=== PATIENT | female | born 1960 | race Caucasian/White ===

== ENCOUNTER 2022-07-21 09:47 | Outpatient (CLI) | payer MEDICARE, SELFPAY ==
--- NOTE | 2022-07-21 09:56 | MM_ITS ---
WS: [id number] Bilateral screening 3D tomosynthesis digital mammogram, 07/21/2022 Clinical Data: SCREENING Comparison: 12/18/2019 Findings: The breast parenchymal pattern shows some glandular tissue. No spiculated masses or clustered calcifi cations are seen. There are no secondary signs of carcinoma. There is a biopsy clip in the midportion of the right breast. MM/[place] [id number] Impression: 1. Negative bilateral mammogram unchanged. 2. Recommend annual screening mammograms. BIRADS: 1-Negative FOLLOW UP: 1 Year Follow-up The CAD schedule checker was used.
== END 2022-07-21 09:48 | disposition home or self-care (01) ==
PROVIDERS: PCP Nurse Practitioner Family; Visit Provider Nurse Practitioner Family
DX: Z12.31 Encounter for screening mammogram for malignant neoplasm of breast (principal)
CPT/HCPCS: 77063; 77067

== ENCOUNTER → 2022-07-26 13:19 | Outpatient (BNVA) | payer MEDICARE, SELFPAY | PROVIDERS: PCP Nurse Practitioner Family; Visit Provider Family Medicine | DX: E87.6 Hypokalemia (principal); I10 Essential (primary) hypertension; E78.5 Hyperlipidemia, unspecified; E03.9 Hypothyroidism, unspecified; R53.83 Other fatigue; G47.00 Insomnia, unspecified; F32.A Depression, unspecified; Z79.899 Other long term (current) drug therapy | CPT/HCPCS: 80053; 80061; 82306; 82607; 84439; 84443; 84481; 85025 ==

== ENCOUNTER → 2022-08-03 13:43 | Outpatient (BNVA) | payer MEDICARE, SELFPAY | PROVIDERS: PCP Nurse Practitioner Family; Visit Provider Family Medicine | DX: N39.0 Urinary tract infection, site not specified (principal); W57.XXXA Bitten or stung by nonvenomous insect and other nonvenomous arthropods, initial encounter; G47.00 Insomnia, unspecified | CPT/HCPCS: 81003; 86618; 86666; 86757; 87077; 87086; 87184 ==

== ENCOUNTER → 2022-10-10 13:33 | Outpatient (BNVA) | payer MEDICARE, SELFPAY | PROVIDERS: PCP Family Medicine; Visit Provider Family Medicine | DX: R35.0 Frequency of micturition (principal); N39.0 Urinary tract infection, site not specified | CPT/HCPCS: 81003; 87077; 87086; 87184 ==

== ENCOUNTER → 2022-10-25 11:02 | Outpatient (BNVA) | payer MEDICARE, SELFPAY | PROVIDERS: PCP Family Medicine; Visit Provider Nurse Practitioner Family | DX: J06.9 Acute upper respiratory infection, unspecified (principal); N18.9 Chronic kidney disease, unspecified; E78.5 Hyperlipidemia, unspecified; E03.9 Hypothyroidism, unspecified; I10 Essential (primary) hypertension; R05.9 Cough, unspecified; J40 Bronchitis, not specified as acute or chronic; N39.0 Urinary tract infection, site not specified | CPT/HCPCS: 80053; 80061 ==

== ENCOUNTER 2022-11-17 13:44 | Emergency (ER) | payer MEDICARE, SELFPAY ==
[2022-11-17 13:47] VITALS: BP 154/100; PULSE 92; RESP 18; TEMP 36.4; O2SAT 91; BMI 25.8
--- NOTE | 2022-11-17 13:54 | W.ED.NAVMDI ---
HPI - Nausea/Vomiting/Diarrhea General: Chief complaint: Nausea/Vomiting/Diarrhea Stated complaint: N/V Time Seen by Provider: 11/17/22 13:47 Source: patient and EMS Mode of arrival: EMS Limitations: no limitations History of Present Illness: 62-year-old female states over the last 3 days she been having nausea vomiting diarrhea states she had multiple episodes of vomiting and feeling dehydrated she denies any fever she denies any abdominal pain. She denies any improving or worsening factors. Associated nausea: Yes Associated symtoms: Reports nausea; Denies chest pain, dysuria or headache(s) Review of Systems Const: Denies: fever(s), chills, body aches or change in appetite Eyes: Denies: blurry vision or eye discomfort ENMT: Denies: throat pain or dental pain Card: Denies: chest pain Resp: Denies: dyspnea GI: Reports: nausea, vomiting and diarrhea : Denies: dysuria Musc: Denies: neck pain or back pain Skin/Breast: Denies: rash Neuro: Denies: headache(s) Psych: Denies: depression [place]/Lymph: Denies: easy bruising All/Imm: Denies: urticaria PFSH ED PFSH: Medical History (Updated 11/17/22 @ 15:39 by Avery Ortiz MD) CKD (chronic kidney disease) Social History Smoking and tobacco status: former smoker Physical Exam Const: COMMON NORMALS: no acute distress, patient oriented x3 and healthy appearing HENMT: COMMON NORMALS: normocephalic and atraumatic HEAD & SCALP: normocephalic and atraumatic Eye: COMMON NORMALS: Equal, round and reactive pupils present and EOMs intact bilaterally PUPIL: Yes Equal, round and reactive pupils present Neck/C-Spine: COMMON NORMALS: full ROM and supple Chest: COMMONS NORMALS: normal inspection of the chest and normal palpation of entire chest wall Resp: COMMON NORMALS: normal respiratory effort, No retractions, No use of accessory muscles and clear to auscultation bilaterally AUSCULTATION: clear to auscultation bilaterally Cardio: COMMON NORMALS: regular rate, regular rhythm and No murmurs present (Cardio) RATE: regular rate RHYTHM: regular rhythm GI: COMMON NORMALS: Normal to inspection, nondistended, normoactive bowel sounds present, Soft to palpation, non-tender and no masses PALPATION: Yes Soft to palpation Extremity: COMMON NORMALS: normal to inspection and full ROM Neuro: COMMON NORMALS: patient oriented x3, moves all extremities and no focal motor deficits Psych: COMMON NORMALS: mental status grossly normal, Normal thought process present and cooperative THOUGHT PROCESS: Normal thought process present Skin: COMMON NORMALS: no rashes or lesions noted and no wounds GENERAL SKIN EXAM: no rashes or lesions noted Course Vital Signs: Vital signs: Vital Signs Temperature 97.6 F 11/17/22 13:47 Pulse Rate 65 11/17/22 15:40 Respiratory Rate 16 11/17/22 15:13 Blood Pressure 138/94 11/17/22 15:40 Pulse Oximetry 96 11/17/22 15:40 Oxygen Delivery Me thod 11/17/22 13:47 MDM - Nausea/Vomiting/Diarrhea Medical Decision Making Patient presents here with nausea vomiting she feels much improved after Phenergan she is been able to tolerate p.o. here she had slight hypokalemia we will start her on potassium at home prescribe her Phenergan she is stable for discharge she is to follow-up with PCP and return if worsening. Lab Data 11/17/22 12:59 11/17/22 12:59 Laboratory Results WBC 5.1 10^3/uL (4.0-10.0) 11/17/22 12:59 RBC 4.45 10^6/uL (4.1-5.3) 11/17/22 12:59 Hgb 13.6 g/dL (11.5-15.3) 11/17/22 12:59 Hct 39.6 % (37.0-47.0) 11/17/22 12:59 MCV 89.0 fl (81-99) 11/17/22 12:59 MCH 30.6 pg (28.0-34.0) 11/17/22 12:59 MCHC 34.3 g/dL (30.0-36.0) 11/17/22 12:59 RDW 12.9 % (12.1-15.1) 11/17/22 12:59 Plt Count 199 10^3/cmm (130-400) 11/17/22 12:59 MPV 12.4 fL (7.4-10.4) H 11/17/22 12:59 Neut % (Auto) 52.2 % 11/17/22 12:59 Lymph % (Auto) 27.4 % 11/17/22 12:59 [place] % (Auto) 13.8 % 11/17/22 12:59 Eos % (Auto) 5.6 % 11/17/22 12:59 Baso % (Auto) 0.6 % 11/17/22 12:59 Neut # (Auto) 2.68 10^3/uL (1.8-7.7) 11/17/22 12:59 Lymph # (Auto) 1.4 10^3/uL (0.8-4.8) 11/17/22 12:59 [place] # (Auto) 0.7 10^3/uL (0.2-0.9) 11/17/22 12:59 Eos # (Auto) 0.3 10^3/uL (0.0-0.8) 11/17/22 12:59 Baso # (Auto) 0.0 10^3/uL (0.0-0.1) 11/17/22 12:59 Nucleated RBC % (auto) 0 % 11/17/22 12:59 Nucleated RBCs # 0.0 /100WBC 11/17/22 12:59 Sodium 138 mmol/L (136-145) 11/17/22 12:59 Potassium 2.8 mmol/L (3.5-5.1) L* 11/17/22 12:59 Chloride 99 mmol/L (98-107) 11/17/22 12:59 Carbon Dioxide 26 mmol/L (22-29) 11/17/22 12:59 Anion Gap 15.8 (5-19) 11/17/22 12:59 BUN 9 mg/dL (8-23) 11/17/22 12:59 Creatinine 1.0 mg/dL (0.5-0.9) H 11/17/22 12:59 GFR Calculation 56.4 mL/min (90-130) L 11/17/22 12:59 Glucose 183 mg/dL (65-115) H 11/17/22 12:59 Calculated Osmolality 289 mOsm/kg (285-295) 11/17/22 12:59 Calcium 9.3 mg/dL (8.5-10.5) 11/17/22 12:59 Total Bilirubin 0.3 mg/dL (0.15-1.2) 11/17/22 12:59 AST 12 U/L (0-32) 11/17/22 12:59 ALT 11 U/L (0-33) 11/17/22 12:59 Alkaline Phosphatase 90 U/L (35-105) 11/17/22 12:59 Total Protein 6.8 g/dL (6.6-8.7) 11/17/22 12:59 Albumin 3.8 g/dL (3.5-5.2) 11/17/22 12:59 Globulin 3.0 g/dL (1.3-4.6) 11/17/22 12:59 Lipase 36 U/L (13-60) 11/17/22 12:59 Discharge Plan Discharge Patient Disposition: Home Clinical Impression: Vomiting, Diarrhea, Hypokalemia Condition: Stable Prescriptions: New promethazine 25 mg tablet 12.5 mg PO Q6H PRN (Reason: nausea and vomiting) Qty: 14 0RF potassium chloride 40 mEq/15 mL liquid 40 meq PO BID 5 Days Qty: 150 0RF No Action aripiprazole [Abilify] 10 mg tablet 10 mg PO DAILY Qty: 90 3RF atorvastatin [Lipitor] 40 mg tablet 40 mg PO DAILY Qty: 90 3RF phenazopyridine [Pyridium] 100 mg tablet 100 mg PO TID PRN (Reason: pain) Qty: 20 0RF amlodipine-benazepril 5-10 mg capsule 1 cap PO DAILY Qty: 90 2RF promethazine-DM 6.25-15 mg/5 mL syrup 5 - 10 ml PO Q6H PRN (Reason: cough) Qty: 200 1RF albuterol sulfate [Ventolin HFA] 90 mcg/actuation HFA aerosol inhaler 2 puff inhalation 6XD PRN (Reason: shortness of breath or wheezing) Qty: 8.5 11RF thyroid (pork) [[place] Thyroid] 60 mg tablet 60 mg PO DAILY Qty: 90 3RF potassium chloride 20 mEq tablet extended release 20 meq PO DAILY Qty: 90 3RF baclofen 20 mg tablet 20 mg PO BID Qty: 180 3RF chlorthalidone 25 mg tablet 25 mg PO DAILY Qty: 90 3RF escitalopram oxalate [Lexapro] 10 mg tablet 10 mg PO DAILY Qty: 90 3RF estradiol 1 mg tablet 1 mg PO DAILY Qty: 90 3RF pantoprazole [Protonix] 40 mg tablet,delayed release (DR/EC) 40 mg PO QAM Qty: 90 3RF doxepin 10 mg capsule See Rx Instructions .ROUTE .COMPLEX Qty: 270 3RF Dose Instruction: TAKE 2 CAPSULES BY MOUTH AT BEDTIME Rx Instructions: TAKE 3 CAPSULES BY MOUTH AT BEDTIME clonidine HCl 0.1 mg tablet 0.1 mg PO BEDTIME Rx Instructions: TAKE 1 TABLET EVERY DAY clonazepam 1 mg tablet 1 mg PO BID PRN (Reason: Anxiety) tramadol 50 mg tablet 50 mg PO BID PRN (Reason: Pain) Symbicort 160-4.5 mcg/actuation HFA aerosol inhaler 2 puff inhalation Q12H PRN (Reason: Shortness Of Breath) Discharge Orders: Discharge ED (Routine); Ordered 11/17/22 Ordered By: Avery Ortiz Referrals: Carmen Adames MD [Primary Care Provider] - 1-3 days Discharge Diet: Advance as tolerated Discharge Activity: Resume usual activity Patient Instructions: Acute Nausea and Vomiting (ED) Coding Level of Care Code ED Occupational Work Experience Teacher for Chg Fwd Exam Comprehensive
[2022-11-17 14:10] LABS: Basophils % 0.6 %; Eosinophils # 0.3 10^3/uL (0.0-0.8); Eosinophils % 5.6 %; Hematocrit 39.6 % (37.0-47.0); Hemoglobin 13.6 g/dL (11.5-15.3); Lymphocytes # 1.4 10^3/uL (0.8-4.8); Lymphocytes % 27.4 %; Mean Corpuscular HGB Conc 34.3 g/dL (30.0-36.0); Mean Corpuscular Hemoglobin 30.6 pg (28.0-34.0); Mean Platelet Volume 12.4 fL (7.4-10.4); Monocytes # 0.7 10^3/uL (0.2-0.9); Monocytes % 13.8 %; Neutrophils # 2.68 10^3/uL (1.8-7.7); Neutrophils % 52.2 %; Nucleated Red Blood Cells % 0 %; Platelet Count 199 10^3/cmm (130-400); Red Blood Count 4.45 10^6/uL (4.1-5.3); Red Cell Distribution Width 12.9 % (12.1-15.1); White Blood Count 5.1 10^3/uL (4.0-10.0)
[2022-11-17] MEDS: sodium chloride 0.9% 1,000 ML 999 ML IV (14:14)
[2022-11-17 14:27] LABS: Alanine Aminotransferase 11 U/L (0-33); Albumin Level 3.8 g/dL (3.5-5.2); Alkaline Phosphatase 90 U/L (35-105); Anion Gap 15.8 (5-19); Aspartate Amino Transferase 12 U/L (0-32); Blood Urea Nitrogen 9 mg/dL (8-23); Calcium 9.3 mg/dL (8.5-10.5); Carbon Dioxide 26 mmol/L (22-29); Chloride 99 mmol/L (98-107); Glomerular Filtration Rate 56.4 mL/min (90-130); Glucose 183 mg/dL (65-115); Lipase 36 U/L (13-60); Osmolality Calculated 289 mOsm/kg (285-295); Sodium 138 mmol/L (136-145); Total Bilirubin 0.3 mg/dL (0.15-1.2); Total Protein 6.8 g/dL (6.6-8.7)
[2022-11-17] MEDS: promethazine 25 mg/mL SDV 1 mL 12.5 MG IM (14:51)
[2022-11-17 14:56] LABS: Potassium 2.8 mmol/L (3.5-5.1)
[2022-11-17] MEDS: potassium chloride ER 20 mEq Tablet 40 MEQ PO (15:09)
[2022-11-17 15:13] VITALS: BP 154/92; PULSE 78; RESP 16; O2SAT 97
[2022-11-17 15:40] VITALS: BP 138/94; PULSE 65; O2SAT 96
[2022-11-17] MEDS: diphenoxylate/atropine Tablet 2 TAB PO (16:07)
[2022-11-17 16:47] LABS: Add Urine Microscopic? NO; Charge for UA Resulting for Rev
[2022-11-17 16:56] VITALS: BP 161/95; PULSE 75; RESP 16; O2SAT 96
[2022-11-17 17:02] LABS: Bilirubin Urine Neg (Negative); Blood Urine Neg (Negative); Glucose Urine UA Norm (Normal); Ketones Urine 1+ (Negative); Leukocyte Esterase Urine Negative (Negative); Nitrate Urine Negative (Negative); Protein Urine Neg (Negative); Urine Appearance Clear (CLEAR); Urine Color Yellow (Yellow); Urobilinogen Urine Neg (Negative); pH Urine 7 (5-7)
== END 2022-11-17 16:50 | disposition home or self-care (01) ==
PROVIDERS: Emergency Provider Emergency Medicine; PCP Family Medicine
DX: R11.11 Vomiting without nausea (principal); R19.7 Diarrhea, unspecified; E87.6 Hypokalemia; N18.9 Chronic kidney disease, unspecified; Z87.891 Personal history of nicotine dependence
CPT/HCPCS: 80053; 81003; 83690; 85025; 96372; 99284; J2550; J7030

== ENCOUNTER 2022-11-20 14:11 | Outpatient (CLI) | payer MEDICARE, SELFPAY | END 2022-11-20 14:12 | disposition home or self-care (01) | PROVIDERS: PCP Family Medicine; Visit Provider Family Medicine | DX: R19.7 Diarrhea, unspecified (principal); E87.6 Hypokalemia | CPT/HCPCS: 82274; 83630; 87177; 87209; 87493; 87506 ==

== ENCOUNTER → 2023-02-17 08:56 | Outpatient (BNVA) | payer MEDICARE, SELFPAY | PROVIDERS: PCP Family Medicine; Visit Provider Family Medicine | DX: E87.6 Hypokalemia (principal); E03.9 Hypothyroidism, unspecified | CPT/HCPCS: 80053; 84443 ==

== ENCOUNTER → 2023-02-21 09:39 | Outpatient (BNVA) | payer MEDICARE, SELFPAY | PROVIDERS: PCP Family Medicine; Visit Provider Family Medicine | DX: A04.72 Enterocolitis due to Clostridium difficile, not specified as recurrent (principal) | CPT/HCPCS: 87493 ==

== ENCOUNTER → 2023-03-09 08:38 | Outpatient (BNVA) | payer MEDICARE, SELFPAY | PROVIDERS: PCP Family Medicine; Visit Provider Family Medicine | DX: A04.72 Enterocolitis due to Clostridium difficile, not specified as recurrent (principal); N39.0 Urinary tract infection, site not specified | CPT/HCPCS: 87493 ==

== ENCOUNTER 2023-08-30 14:15 | Outpatient (CLI) | payer MEDICARE, SELFPAY ==
--- NOTE | 2023-08-30 14:25 | MM_ITS ---
WS: [id number] BILATERAL 3D TOMOSYNTHESIS DIGITAL SCREENING MAMMOGRAPHY WITH CAD CLINICAL INFORMATION: SCREENING HISTORY: Screening mammogram. No current complaints. COMPARISON: 2021 TECHNIQUE: Bilateral CC and MLO views. FINDINGS: Scattered fibroglandular densities bilaterally. No suspicious focal mass, asymmetry, calcifications, or architectural distortion. No evidence of malignancy. Biopsy clip RIGHT breast. IMPRESSION: MM/[place] [id number] BI-RADS: 2-Benign FOLLOW UP: 1 Year Follow-up Recommend return to annual screening mammography.
== END 2023-08-30 14:16 | disposition home or self-care (01) ==
LOC: RAD 14:16
PROVIDERS: PCP Family Medicine; Visit Provider Family Medicine
DX: Z12.31 Encounter for screening mammogram for malignant neoplasm of breast (principal); E78.5 Hyperlipidemia, unspecified; E03.9 Hypothyroidism, unspecified; I10 Essential (primary) hypertension; E55.9 Vitamin D deficiency, unspecified
CPT/HCPCS: 77063; 77067; 80053; 80061; 82306; 84443; 85025

== ENCOUNTER 2023-09-04 07:06 | Outpatient (CLI) | payer MEDICARE, SELFPAY ==
--- NOTE | 2023-09-04 07:15 | CT_ITS ---
WS: [id number] LDCT LUNG CANCER SCREENING TECHNIQUE: Noncontrast CT of the chest with coronal and sagittal reformatted images. CLINICAL INFORMATION: Z00.00 - Encounter for general adult medical examination ... COMPARISON: None. DLP: 78.30 mGy.cm DIvol: Mean CTDIvol: 1.80 (mGy) All CT scans at [facility] use at least one of these dose optimization techniques: automat ed exposure control; mA and/or kV adjustment per patient size (includes targeted exams where dose is matched to clinical indication); or iterative reconstruction. FINDINGS: Normal caliber thoracic aorta. Calcified mediastinal lymph nodes. Postoperative changes at the [facility] ction with gastric bypass. Cholecystectomy clips. Splenic granulomas. Adrenal glands are normal. Fatt y atrophy of the pancreas. Few calcified granulomas RIGHT upper lobe. A few scattered tiny nodules in the upper lobes measuring 3 mm. 3.3 mm nodule RIGHT lower lobe superior segment posteromedially. IMPRESSION: CT/CT lung screening [id number] LUNG-RADS: 2-Benign Appearance or Behavior FOLLOW UP: 12 Month: Continue annual screening with LDCT
== END 2023-09-04 07:07 | disposition home or self-care (01) ==
PROVIDERS: PCP Family Medicine; Visit Provider Family Medicine
DX: Z00.00 Encounter for general adult medical examination without abnormal findings (principal); Z12.2 Encounter for screening for malignant neoplasm of respiratory organs
CPT/HCPCS: 71271

== ENCOUNTER → 2024-02-12 11:27 | Outpatient (BNVA) | payer MEDICARE, SELFPAY | PROVIDERS: PCP Family Medicine; Visit Provider Family Medicine | DX: N39.0 Urinary tract infection, site not specified (principal); M79.7 Fibromyalgia | CPT/HCPCS: 81000 ==

== ENCOUNTER → 2024-07-03 10:31 | Outpatient (BNVA) | payer MEDICARE, SELFPAY | PROVIDERS: PCP Family Medicine; Visit Provider Family Medicine | DX: I10 Essential (primary) hypertension (principal); E78.5 Hyperlipidemia, unspecified | CPT/HCPCS: 80053; 80061; 84443; 85025 ==

== ENCOUNTER 2024-09-17 11:58 | Outpatient (CLI) | payer MEDICARE, SELFPAY ==
--- NOTE | 2024-09-17 12:50 | MM_ITS ---
WS: [id number] BILATERAL 3D TOMOSYNTHESIS DIGITAL SCREENING MAMMOGRAPHY WITH CAD CLINICAL INFORMATION: SCREENING HISTORY: Screening mammogram. No current complaints. COMPARISON: 2022 TECHNIQUE: Bilateral CC and MLO views. FINDINGS: Scattered fibroglandular densities bilaterally. No suspicious focal mass, asymmetry, calcifications, or architectural distortion. No evidence of malignancy. Biopsy marker RIGHT breast MM/MM scr BI tomosynthesis [id number] IMPRESSION: DENSITY: There are scattered areas of fibroglandular density. BI-RADS: 2 - Benign. FOLLOW UP: 1 Year Follow-up Recommend return to annual screening mammography.
--- NOTE | 2024-09-17 12:50 | CT_ITS ---
WS: [id number] LDCT LUNG CANCER SCREENING HISTORY: HX OF TOBACCO USE TECHNIQUE: Axial imaging performed from the apices to 1 cm below the costophrenic angles. Coronal and sagittal reformats are submitted with axial MIP series. All CT scans at [facility] use at least one of these dose optimization techniques: automated exposure control; mA and/or kV adjustment per patient size (includes targeted exams where dose is matched to clinical indication); or iterativ e reconstruction. DLP: 56.90 mGy.cm DIvol: Mean CTDIvol: 1.10 (mGy) COMPARISON: 09/04/2023 Diagnostic quality: Satisfactory Lungs: Mild pulmonary hyperexpansion. 3 mm noncalcified nodule superior segment RIGHT lower lobe. Sub pleural nodule 3 mm LEFT lower lobe. No new mass or increasing mass or nodule. No endobronchial lesio ns. Heart: Normal size heart with no pericardial effusion.. Other findings: Mild atherosclerosis aorta. No adenopathy. Postsurgical changes at the GE junction. P rior cholecystectomy. No adrenal mass. Mild pancreatic atrophy. Prior fracture with healing elvin estevez CT/CT lung screening [id number] IMPRESSION: LUNG-RADS: 2-Benign Appearance or Behavior FOLLOW UP: 12 Month: Continue annual screening with LDCT OTHER FINDINGS (S MODIFIER): None.
== END 2024-09-17 11:59 | disposition home or self-care (01) ==
LOC: RAD 11:58
PROVIDERS: PCP Family Medicine; Visit Provider Internal Medicine
DX: Z87.891 Personal history of nicotine dependence (principal); R91.8 Other nonspecific abnormal finding of lung field; I70.0 Atherosclerosis of aorta; Z90.49 Acquired absence of other specified parts of digestive tract; Z12.31 Encounter for screening mammogram for malignant neoplasm of breast; R92.323 Mammographic fibroglandular density, bilateral breasts
CPT/HCPCS: 71271; 77063; 77067

== ENCOUNTER → 2024-09-20 10:01 | Outpatient (BNVA) | payer MEDICARE, SELFPAY | PROVIDERS: PCP Family Medicine; Visit Provider Nurse Practitioner Family | DX: L65.0 Telogen effluvium (principal); L57.0 Actinic keratosis; L81.4 Other melanin hyperpigmentation; I78.8 Other diseases of capillaries; L81.5 Leukoderma, not elsewhere classified | CPT/HCPCS: 99203 ==